=== PATIENT | female | born 1950 | race Caucasian/White ===

== ENCOUNTER 2018-11-06 18:51 | Emergency (ER) | payer OTHER, MEDICARE ==
[~2018-11-06] VITALS: Ht 170.2 cm; Wt 90.7 kg
[2018-11-06] MEDS ORDERED: COZAAR 25 MG TA25 M1 PO (19:05)
[2018-11-06] MEDS ORDERED: HYDROCHLOROTHIA25 M2 PO (19:07)
[2018-11-06] MEDS ORDERED: GLUCOPHAGE500 MG PO (19:08)
[2018-11-06] MEDS ORDERED: ESTRADIOL 1 MG T1 M1 PO (19:09)
[2018-11-06] MEDS ORDERED: MS CONTIN15 MG PO (19:09)
[2018-11-06] MEDS ORDERED: OMEPRAZOLE40 MG PO (19:09)
[2018-11-06] MEDS ORDERED: PROAIR RESPICL90 MCG INH (19:09)
[2018-11-06] MEDS ORDERED: SYNTHROID25 MC1 PO (19:10)
[2018-11-06] MEDS ORDERED: GLUCOTROL5 MG PO (19:10)
[2018-11-06] MEDS ORDERED: CIMETIDINE 400400 MG PO (19:10)
[2018-11-06] MEDS ORDERED: EFFEXOR XR150 MG PO (19:10)
[2018-11-06] MEDS ORDERED: PEPCID40 MG PO (19:11)
[2018-11-06] MEDS ORDERED: KEFLEX500 M1 PO (20:18)
[2018-11-06 20:34] VITALS: BP 146/74
== END 2018-11-06 20:35 | disposition home or self-care (01) ==
LOC: ER 18:51
DX: L03.031 Cellulitis of right toe (principal); E11.9 Type 2 diabetes mellitus without complications; Z88.8 Allergy status to other drugs, medicaments and biological substances